=== PATIENT | female | born 1985 | race Caucasian/White ===

== ENCOUNTER 2019-10-26 14:38 | Inpatient (IN) ==
[2019-10-26] MEDS ORDERED: Naloxone 0.4 MG/ML INJ IVP PRN (19:35)
[2019-10-26 20:48] LABS: Basophils % 0.1 %; Hematocrit 42.1 % (35.3-44.9); Hemoglobin 13.5 g/dL (11.5-15.4); Immature Granulocytes % 0.5 % (0-4); Lymphocytes # 2.1 K/mcL (0.6-4.6); Lymphocytes % 11.8 %; Mean Corpuscular HGB Conc 32.1 g/dL (31.6-35.5); Mean Corpuscular Hemoglobin 31.2 pg (28.0-33.3); Mean Corpuscular Volume 97.2 fL (83.0-100.0); Mean Platelet Volume 8.8 fL (9.4-12.4); Monocytes % 5.5 %; Platelet Count 322 K/mcL (140-400); Red Blood Count 4.33 M/mcL (3.82-4.97); Red Cell Distribution Width 14.2 % (11.5-14.5); Segmented Neutrophils % 82.1 %; White Blood Count 18.2 K/mcL (4.3-11.1)
[2019-10-26 21:07] LABS: Alanine Aminotransferase 7 Units/L (7-52); Albumin/Globulin Ratio 1.5 (1.1-2.2); Alkaline Phosphatase 77 Units/L (34-104); Aspartate Amino Transferase 12 Units/L (13-39); BUN/Creatinine Ratio 11 (6-26); Bilirubin,Indirect 0.2 mg/dL (0.0-1.0); Bilirubin,Total 0.2 mg/dL (0.3-1.0); Blood Urea Nitrogen 5 mg/dL (6-20); Calcium 8.3 mg/dL (8.6-10.3); Carbon Dioxide 24 mEq/L (23-29); Chloride 104 mEq/L (98-107); Globulin 2.6 g/dL (2.4-3.5); Glucose 101 mg/dL (70-105); Osmolality,Calculated 281 (280-300); Phosphorous 2.6 mg/dL (2.7-4.5); Potassium 3.4 mEq/L (3.5-5.1); Sodium 137 mEq/L (136-145); Total Protein 6.6 g/dL (6.4-8.9); eGFR For African Americans > 60 (> 60); eGFR For Non-African Americans > 60 (> 60)
[2019-10-26] MEDS: *HR* Heparin 5,000 UNIT/ML VIAL SQ SCH (22:01)
[2019-10-26] MEDS: levETIRAcetam 250 MG TABLET PO SCH ×2 (22:01→22:21)
[2019-10-27] MEDS: *HR* Heparin 5,000 UNIT/ML VIAL SQ SCH ×3 (05:11→21:32)
[2019-10-27 06:30] LABS: White Blood Count 11.3 K/mcL (4.3-11.1)
[2019-10-27 06:31] LABS: Basophils % 0.2 %; Eosinophils % 0.1 %; Hematocrit 43.7 % (35.3-44.9); Hemoglobin 13.7 g/dL (11.5-15.4); Immature Granulocytes % 0.4 % (0-4); Lymphocytes % 17.3 %; Mean Corpuscular HGB Conc 31.4 g/dL (31.6-35.5); Mean Corpuscular Volume 98.9 fL (83.0-100.0); Monocytes # 0.7 K/mcL (0.0-1.3); Monocytes % 6.1 %; Neutrophils # 8.6 K/mcL (1.6-8.9); Platelet Count 325 K/mcL (140-400); Red Blood Count 4.42 M/mcL (3.82-4.97); Red Cell Distribution Width 14.4 % (11.5-14.5); Segmented Neutrophils % 75.9 %
[2019-10-27 06:47] LABS: BUN/Creatinine Ratio 8 (6-26); Blood Urea Nitrogen 4 mg/dL (6-20); Calcium 9.1 mg/dL (8.6-10.3); Carbon Dioxide 24 mEq/L (23-29); Chloride 109 mEq/L (98-107); Glucose 89 mg/dL (70-105); Osmolality,Calculated 286 (280-300); Potassium 3.7 mEq/L (3.5-5.1); Sodium 140 mEq/L (136-145); eGFR For African Americans > 60 (> 60); eGFR For Non-African Americans > 60 (> 60)
[2019-10-27] MEDS ORDERED: Topiramate 100 MG TABLET PO SCH (09:30)
[2019-10-27] MEDS ORDERED: levETIRAcetam 250 MG TABLET PO SCH (09:45)
[2019-10-27] MEDS ORDERED: Naloxone 0.4 MG/ML INJ IVP PRN (17:06)
[2019-10-27] MEDS: levETIRAcetam 250 MG TABLET PO SCH (21:32)
[2019-10-27] MEDS ORDERED: Acetaminophen 325 MG TABLET PO PRN (21:51)
[2019-10-28] MEDS: *HR* Heparin 5,000 UNIT/ML VIAL SQ SCH (05:54)
[2019-10-28 06:46] LABS: VBG Ionized Calcium 1.17 mmol/L (1.15-1.35)
[2019-10-28 06:46] LABS: Basophils % 0.3 %; Eosinophils # 0.1 K/mcL (0.0-0.6); Eosinophils % 0.8 %; Hematocrit 43.1 % (35.3-44.9); Hemoglobin 13.7 g/dL (11.5-15.4); Immature Granulocytes % 0.2 % (0-4); Lymphocytes # 2.7 K/mcL (0.6-4.6); Lymphocytes % 31.2 %; Mean Corpuscular HGB Conc 31.8 g/dL (31.6-35.5); Mean Corpuscular Hemoglobin 31.4 pg (28.0-33.3); Mean Corpuscular Volume 98.6 fL (83.0-100.0); Mean Platelet Volume 8.9 fL (9.4-12.4); Monocytes # 0.6 K/mcL (0.0-1.3); Monocytes % 6.9 %; Neutrophils # 5.3 K/mcL (1.6-8.9); Platelet Count 303 K/mcL (140-400); Red Blood Count 4.37 M/mcL (3.82-4.97); Red Cell Distribution Width 14.2 % (11.5-14.5); Segmented Neutrophils % 60.6 %; White Blood Count 8.7 K/mcL (4.3-11.1)
[2019-10-28 07:06] LABS: Alanine Aminotransferase 5 Units/L (7-52); Albumin 3.9 g/dL (3.5-5.7); Albumin/Globulin Ratio 1.5 (1.1-2.2); Alkaline Phosphatase 82 Units/L (34-104); Aspartate Amino Transferase 9 Units/L (13-39); BUN/Creatinine Ratio 20 (6-26); Bilirubin,Total 0.4 mg/dL (0.3-1.0); Blood Urea Nitrogen 13 mg/dL (6-20); Calcium 9.1 mg/dL (8.6-10.3); Carbon Dioxide 23 mEq/L (23-29); Chloride 109 mEq/L (98-107); Globulin 2.6 g/dL (2.4-3.5); Glucose 91 mg/dL (70-105); Magnesium 2.2 mg/dL (1.6-2.6); Osmolality,Calculated 288 (280-300); Phosphorous 2.4 mg/dL (2.7-4.5); Potassium 3.6 mEq/L (3.5-5.1); Sodium 139 mEq/L (136-145); Total Protein 6.5 g/dL (6.4-8.9); eGFR For African Americans > 60 (> 60); eGFR For Non-African Americans > 60 (> 60)
[2019-10-28] MEDS: levETIRAcetam 250 MG TABLET PO SCH (07:48)
[2019-10-28] MEDS ORDERED: Topiramate 100 MG TABLET PO SCH (09:00)
[2019-10-28 11:18] VITALS: BP 114/78
== END 2019-10-28 13:15 | DRG 817 ==
LOC: ICNU → SUATTDRO 19:35 → 3ANU 10-27 16:21
PROVIDERS: ADMIT Pediatrics; ATTEND Internal Medicine

== ENCOUNTER 2019-10-28 11:35 | Observation (INO) ==
[2019-10-28] MEDS ORDERED: haloperidoL 5 MG TABLET PO PRN (13:42)
[2019-10-28] MEDS ORDERED: *HR* LORazepam 1 MG TABLET PO PRN (13:42)
[2019-10-28] MEDS ORDERED: MOM Conc 10 ML UD.LIQ PO PRN (13:42)
[2019-10-28] MEDS ORDERED: Mag Hydrox/Al Hydrox/Simeth 30 ML UDC PO PRN (13:42)
[2019-10-28] MEDS ORDERED: Haloperidol Lactate 5 MG/ML VIAL IM PRN (13:42)
[2019-10-28] MEDS ORDERED: traZODone 50 MG TABLET PO PRN (13:42)
[2019-10-28] MEDS ORDERED: *HR* LORazepam 2 MG/ML VIAL IM PRN (13:42)
[2019-10-28] MEDS: levETIRAcetam 250 MG TABLET PO SCH (17:54)
[2019-10-28] MEDS: Ibuprofen 400 MG TABLET PO PRN (20:43)
[2019-10-28] MEDS: Nicotine 2 MG GUM BC PRN (20:44)
[2019-10-28] MEDS: hydrOXYzine pamoate 25 MG CAPSULE PO PRN (20:44)
[2019-10-28] MEDS: QUEtiapine Fumarate 25 MG TABLET PO PRN (20:44)
[2019-10-29] MEDS: levETIRAcetam 250 MG TABLET PO SCH ×2 (06:26→17:22)
[2019-10-29] MEDS ORDERED: SUMAtriptan succinate 50 MG TABLET PO PRN (12:43)
[2019-10-29] MEDS: hydrOXYzine pamoate 25 MG CAPSULE PO PRN (20:47)
[2019-10-29] MEDS: Nicotine 2 MG GUM BC PRN (20:47)
[2019-10-29] MEDS: Ibuprofen 400 MG TABLET PO PRN (20:47)
[2019-10-29] MEDS: QUEtiapine Fumarate 25 MG TABLET PO PRN (20:47)
[2019-10-29] MEDS: lamoTRIgine 100 MG TABLET PO SCH (20:47)
[2019-10-29] MEDS ORDERED: lamoTRIgine 100 MG TABLET PO SCH (21:00)
[2019-10-29] MEDS ORDERED: LEVETIRACETAM 500 MG PO SCH (21:00)
[2019-10-30] MEDS: levETIRAcetam 250 MG TABLET PO SCH ×2 (06:26→17:57)
[2019-10-30] MEDS: lamoTRIgine 100 MG TABLET PO SCH ×2 (08:44→21:41)
[2019-10-30] MEDS: hydrOXYzine pamoate 25 MG CAPSULE PO PRN (21:40)
[2019-10-30] MEDS: QUEtiapine Fumarate 25 MG TABLET PO PRN (21:40)
[2019-10-31] MEDS: Ibuprofen 400 MG TABLET PO PRN (04:32)
[2019-10-31] MEDS: levETIRAcetam 250 MG TABLET PO SCH (04:32)
[2019-10-31] MEDS: lamoTRIgine 100 MG TABLET PO SCH (08:54)
[2019-10-31 09:12] VITALS: BP 110/79
== END 2019-10-31 10:47 | disposition home or self-care (01) ==
LOC: 1ANU 11:35 → INTOOBSV 11:35
PROVIDERS: ADMIT Psychiatry & Neurology Forensic Psychiatry; ATTEND Psychiatry & Neurology Forensic Psychiatry